=== PATIENT | female | born 1985 | race Caucasian/White ===

== ENCOUNTER 2016-11-15 15:32 | Observation (INO) | payer OTHER ==
[2016-11-15 15:32] VITALS: BMI 27.3
[2016-11-15 15:37] VITALS: RESP 16; O2SAT 100
[2016-11-15] MEDS ORDERED: Iohexol 240 (50 ml) PO ONE (15:56)
[2016-11-15] MEDS ORDERED: Sodium Chloride 0.9% 1,000 ML IV STA (15:56)
--- NOTE | 2016-11-15 16:10 | ED PDOC ---
HPI: Abdomen Time Seen by Provider: 11/15/16 15:38 Chief Complaint (Nursing): Female Genitourinary Chief Complaint (Provider): Right flank pain History Per: Patient History/Exam Limitations: no limitations Onset/Duration Of Symptoms: Hrs Outside of [place] travel?: No Quality Of Discomfort: Sharp Associated Symptoms: Nausea. denies: Vomiting, Diarrhea, Chest Pain, Urinary Symptoms Additional History Per: Patient Additional Complaint(s): The patient is a 30yo female, no known PMHx, presents to the ED for evaluation of right sided flank pain onset since 11am today. Patient reports the pain is atraumatic and nonradiating. Patient reports associated nausea. She states having similar symptoms in the past and reports her pain relieved spontaneously. Patient denies any urinary symptoms, vomiting, diarrhea, chest pain, dizziness. Patient offers no additional medical complaints. No dysuria. No weakness, chest pain, dyspnea. Abnormal Vaginal Bleeding: No Past Medical History Reviewed: Historical Data, Nursing Documentation, Vital Signs Vital Signs: Last Vital Signs Temp 98.7 F 11/15/16 15:35 Pulse 74 11/15/16 15:35 Resp 16 11/15/16 15:35 BP 95/64 L 11/15/16 15:35 Pulse Ox 100 11/15/16 16:14 - Medical History PMH: No Chronic Diseases - Surgical History Surgical History: No Surg Hx - Family History Family History: States: Unknown Family Hx - Social History Current smoker - smoking cessation education provided: No Alcohol: None Drugs: Denies - Immunization History Hx Tetanus Toxoid Vaccination: No Hx Influenza Vaccination: No Hx Pneumococcal Vaccination: No - Home Medications Home Medications: Ambulatory Orders Medication Instructions Recorded Acetaminophen/Butalbital/Caf 1 tab PO TID PRN #20 tab 06/17/16 [Fioricet] Acetaminophen/Diphenhydramine 1 each PO PRN PRN 06/17/16 [Tylenol Pm Ex-Strength Caplet] Metoclopramide [Reglan] 1 tab PO TID PRN #25 tab 06/17/16 - Allergies Allergies/Adverse Reactions: Allergies Allergy/AdvReac Type Severity Reaction Status Date / Time No Known Allergies Allergy Verified 11/15/16 15:34 Review of Systems ROS Statement: Except As Marked, All Systems Reviewed And Found Negative Cardiovascular: Negative for: Chest Pain Gastrointestinal: Positive for: Nausea, Abdominal Pain (right flank pain). Negative for: Vomiting, Diarrhea Genitourinary Female: Negative for: Dysuria, Frequency, Incontinence, Hematuria Neurological: Negative for: Headache, Dizziness Physical Exam - Reviewed Nursing Documentation Reviewed: Yes Vital Signs Reviewed: Yes - Physical Exam Appears: Positive for: Well, Non-toxic, No Acute Distress Head Exam: Positive for: ATRAUMATIC, NORMAL INSPECTION, NORMOCEPHALIC Skin: Positive for: Normal Color, Warm, Dry Eye Exam: Positive for: Normal appearance Neck: Positive for: Normal, Supple Cardiovascular/Chest: Positive for: Regular Rate, Rhythm Respiratory: Positive for: Normal Breath Sounds. Negative for: Respiratory Distress Gastrointestinal/Abdominal: Positive for: Soft, Tenderness (Right lower quadrant tenderness to palpation) Back: Positive for: R CVA Tenderness Extremity: Positive for: Normal ROM. Negative for: Pedal Edema, Deformity, Swelling Neurologic/Psych: Positive for: Alert, Oriented - Laboratory Results Result Diagrams: 11/15/16 16:38 11/15/16 16:38 Interpretation Of Abn Labs: bacteria in urine - ECG O2 Sat by Pulse Oximetry: 100 (RA) Pulse Ox Interpretation: Normal - CT Scan/US ct Other Rad Studies (CT/US): Read By Radiologist Other Rad Interpretation: no acute Medical Decision Making Medical Decision Making: Time: 1545 Impression: Right flank pain with right lower quadrant pain tenderness Plan: -- CT AP w/ contrast -- Labs -- IV Fluids -- Toradol 15 mg IV Reassess Scribe Attestation: Documented by Kenia Atwood acting as a scribe for Marquis Li MD. Provider Attestation: All medical record entries made by the Scribe were at my direction and personally dictated by me. I have reviewed the chart and agree that the record accurately reflects my personal performance of the history, physical exam, medical decision making, and the department course for this patient. I have also personally directed, reviewed, and agree with the discharge instructions and disposition. ED OBSERVATION Discharge: Yes Date of observation admission: 11/15/16 Time of observation admission: 16:17 - Observation admission statement Patient is being placed in observation because:: pending ct ap and pain eval - Goals of Observation Goals of observation are:: 2119: Stable. AAOx3. Pain free. Tolerated PO. Fu with pcp. - Progress Note Progress Note: 11/15/16 21:21 pain free Disposition - Clinical Impression Clinical Impression: Urinary tract infection, Abdominal pain - Patient ED Disposition Is Patient to be Admitted: No Counseled Patient/Family Regarding: Studies Performed, Diagnosis, Need For Followup, Rx Given - Disposition Disposition: Routine/Home Disposition Time: 21:21 Condition: FAIR
[2016-11-15] MEDS ORDERED: Iohexol 240 (50 ml) ONE (16:16)
[2016-11-15 16:55] LABS: ALB/GLOB RATIO 1.4 (1.0-2.1); ALBUMIN 4.2 g/dL (3.5-5.0); ALT/SGPT 34 U/L (9-52); AST/SGOT 22 U/L (14-36); BLOOD UREA NITROGEN 10 mg/dl (7-17); CALCIUM 8.9 mg/dL (8.4-10.2); GFR AFRICAN-AMERICAN > 60; GFR NON-AFRICAN AMERICAN > 60
[2016-11-15 16:58] LABS: SQUAMOUS EPITHIAL 1 /hpf (0-5); URINE BACTERIA OCC (<OCC); URINE BILIRUBIN NEGATIVE (NEGATIVE); URINE BLOOD SMALL (NEGATIVE); URINE CLARITY SLIGHTY-CLOUDY (Clear); URINE COLOR YELLOW (YELLOW); URINE GLUCOSE (UA) NEG (Normal); URINE LEUKOCYTE ESTERASE MOD Leu/uL (Negative); URINE NITRATE NEGATIVE (NEGATIVE); URINE PROTEIN NEGATIVE (NEGATIVE); URINE UROBILINOGEN 0.2-1.0 mg/dL (0.2-1.0)
[2016-11-15 17:01] LABS: BASO % 0.2 % (0.0-2.0); EOS # 0.1 K/uL (0.0-0.7); EOS % 0.7 % (0.0-4.0); LYMPH # 2.5 K/uL (1.0-4.3); LYMPH % 35.6 % (20.0-40.0); MEAN CELL VOLUME 86.9 fl (81.0-99.0); MEAN CORPUSCULAR HEMOGLOBIN 28.5 pg (27.0-31.0); MEAN CORPUSCULAR HGB CONC 32.8 g/dL (33.0-37.0); MEAN PLATELET VOLUME 10.3 fl (7.2-11.7); MONO # 0.5 K/uL (0.0-0.8); MONO % 7.2 % (0.0-10.0); NEUT # 3.9 K/uL (1.8-7.0); NEUT % 56.3 % (50.0-75.0); RBC 4.21 Mil/uL (3.80-5.20); RED CELL DISTRIBUTION WIDTH 14.1 % (11.5-14.5)
[2016-11-15] MEDS ORDERED: Iohexol 300 100 ML IJ ONE (18:41)
[2016-11-15] MEDS ORDERED: Sodium Chloride 0.9% 50 ML IV ONE (18:41)
--- NOTE | 2016-11-15 20:35 | CT ---
EXAM: CT Abdomen and Pelvis With Intravenous Contrast CLINICAL HISTORY: 30 years old, female; Pain; Abdominal pain; Localized; Right; Patient HX: Ruq rlq pain radiating to rt flank; Additional info: Abd pain TECHNIQUE: Axial computed tomography images of the abdomen and pelvis with intravenous contrast. This CT exam was performed using one or more of the following dose reduction techniques: automated exposure control, adjustment of the mA and/or kV according to patient size, and/or use of iterative reconstruction technique. Coronal and sagittal reformatted images were created and reviewed. CONTRAST: 98 mL of OMNIPAQUE administered intravenously. EXAM DATE/TIME: 11/15/2016 3:56 PM COMPARISON: US - ABDOMEN COMPLETE 05/19/2014 7:03:02 PM FINDINGS: Lower thorax: Heart size is normal. There is minimal atelectasis at the lung bases. There is a small hiatal hernia ABDOMEN: Liver: unremarkable Gallbladder and bile ducts: unremarkable Pancreas: unremarkable Spleen: unremarkable Adrenals: unremarkable Kidneys and ureters: unremarkable Stomach and bowel: Stomach is partially distended. Rotation is normal. There is no obstruction. Terminal ileum is unremarkable. Appendix is only partially visualized and contains contrast and air.Colon is incompletely distended which limits evaluation. Appendix: See above. PELVIS: Bladder: unremarkable Reproductive: Uterus and right adnexa are unremarkable. There is a corpus luteum in the left adnexa. ABDOMEN and PELVIS: Intraperitoneal space: There is free fluid in the pelvis. There is no free air. Bones/joints: There are no acute osseous abnormalities there is mild L5-S1 disc bulging. Soft tissues: There is a very small fat containing umbilical hernia. Vasculature: Vascular structures are unremarkable. Lymph nodes: There is no pathologic adenopathy. IMPRESSION: No acute solid visceral or bowel abnormality, no CT findings of acute appendicitis; free fluid in the pelvis, physiologic versus recent cyst rupture; left corpus luteum
[2016-11-15 21:41] VITALS: BP 97/61; PULSE 64; TEMP 98.2
== END 2016-11-15 21:22 | disposition home or self-care (01) ==
LOC: H.ER 15:32 → H.EROBSV 15:56
PROVIDERS: ADMIT Emergency Medicine; ATTEND Emergency Medicine
DX: N39.0 Urinary tract infection, site not specified (principal)

== ENCOUNTER 2017-03-30 12:28 | Emergency (ER) | payer OTHER ==
[2017-03-30 13:17] VITALS: BMI 30.7
[2017-03-30 13:19] VITALS: BP 96/60; PULSE 60; RESP 16; TEMP 98; O2SAT 100
--- NOTE | 2017-03-30 14:17 | ED PDOC ---
HPI: Back Time Seen by Provider: 03/30/17 13:50 Chief Complaint (Nursing): Back Pain Chief Complaint (Provider): Back Pain History Per: Patient History/Exam Limitations: no limitations Onset/Duration Of Symptoms: Days (x2) Current Symptoms Are (Timing): Still Present Additional Complaint(s): Delta Sims is a 31 year old female with a past medical history of chronic back pain who presents to the ED complaining of lower back pain x2 days. Confirms pain and difficulty with movement. States she stands a lot at work and she took Tylenol today without relief. Also states she developed chronic back pain since . PMD: Stacey Bender MD Past Medical History Reviewed: Historical Data, Nursing Documentation, Vital Signs Vital Signs: Last Vital Signs Temp 98 F 03/30/17 13:17 Pulse 60 03/30/17 13:17 Resp 16 03/30/17 13:17 BP 96/60 L 03/30/17 13:17 Pulse Ox 100 03/30/17 13:17 - Medical History PMH: Back Problems (since ) - Family History Family History: States: Unknown Family Hx - Immunization History Hx Tetanus Toxoid Vaccination: No Hx Influenza Vaccination: No Hx Pneumococcal Vaccination: No - Home Medications Home Medications: Ambulatory Orders Medication Instructions Recorded Acetaminophen/Butalbital/Caf 1 tab PO TID PRN #20 tab 06/17/16 [Fioricet] Acetaminophen/Diphenhydramine 1 each PO PRN PRN 06/17/16 [Tylenol Pm Ex-Strength Caplet] Metoclopramide [Reglan] 1 tab PO TID PRN #25 tab 06/17/16 Ciprofloxacin HCl [Cipro] 250 mg PO BID #6 tab 11/15/16 Ibuprofen [Motrin] 600 mg PO TID 7 Days tab 11/15/16 Naproxen 1 tab PO Q12 PRN #14 tab 03/30/17 diaZEpam [Valium] 5 mg PO Q6 PRN #4 tab 03/30/17 - Allergies Allergies/Adverse Reactions: Allergies Allergy/AdvReac Type Severity Reaction Status Date / Time No Known Allergies Allergy Verified 03/30/17 13:18 Review of Systems ROS Statement: Except As Marked, All Systems Reviewed And Found Negative Musculoskeletal: Positive for: Back Pain Physical Exam - Reviewed Nursing Documentation Reviewed: Yes Vital Signs Reviewed: Yes - Physical Exam Appears: Positive for: Well, Non-toxic, No Acute Distress Head Exam: Positive for: ATRAUMATIC, NORMAL INSPECTION, NORMOCEPHALIC Skin: Positive for: Normal Color. Negative for: Rash Eye Exam: Positive for: Normal appearance Gastrointestinal/Abdominal: Positive for: Normal Exam, Bowel Sounds, Soft. Negative for: Tenderness, Guarding, Rebound Back: Negative for: Normal Inspection (Paralumbar tenderness) Neurologic/Psych: Positive for: Alert, Oriented - ECG O2 Sat by Pulse Oximetry: 100 (RA) Pulse Ox Interpretation: Normal Medical Decision Making Medical Decision Making: Time: 13:29 Clinical Impression: Muscular strain Plan: --ED urine --Toradol 30 mg IM --Reevaluation Scribe Attestation: Documented by Vern Kang, acting as a scribe for Sharath Cam PA-C Provider Scribe Attestation: All medical record entries made by the Scribe were at my direction and personally dictated by me. I have reviewed the chart and agree that the record accurately reflects my personal performance of the history, physical exam, medical decision making, and the department course for this patient. I have also personally directed, reviewed, and agree with the discharge instructions and disposition. Disposition - Clinical Impression Clinical Impression: Back strain - Patient ED Disposition Is Patient to be Admitted: No - Disposition Referrals: [facility] [Outside] Disposition: Routine/Home Disposition Time: 14:12 Condition: STABLE Prescriptions: diaZEpam [Valium] 5 mg PO Q6 PRN #4 tab PRN Reason: Muscle Spasm Naproxen 1 tab PO Q12 PRN #14 tab PRN Reason: Pain, Moderate (4-7) Instructions: Muscle Strain (ED) Forms: [facility] ED School/Work Excuse
== END 2017-03-30 14:13 | disposition home or self-care (01) ==
LOC: H.ER 12:28
DX: S39.012A Strain of muscle, fascia and tendon of lower back, initial encounter (principal); G89.29 Other chronic pain
CPT/HCPCS: 81025; 96372; 99282; J1885

== ENCOUNTER 2018-01-14 10:46 | Emergency (ER) | payer OTHER ==
[2018-01-14 11:07] VITALS: BMI 29.0
[2018-01-14 11:08] VITALS: O2SAT 100
--- NOTE | 2018-01-14 11:33 | ED PDOC ---
HPI: Abdomen History Per: Patient History/Exam Limitations: no limitations Onset/Duration Of Symptoms: Hrs Current Symptoms Are (Timing): Still Present Severity: Severe Pain Scale Rating Of: 8 Location Of Pain/Discomfort: RUQ, RLQ Quality Of Discomfort: Cramping Associated Symptoms: Nausea. denies: Fever, Chills, Vomiting, Diarrhea Exacerbating Factors: Movement Alleviating Factors: None Last Bowel Movement: Days Ago (2, normal per pt) <Bonny French - Last Filed: 01/14/18 14:29> <Tavares Cyr III - Last Filed: 01/14/18 17:15> Time Seen by Provider: 01/14/18 11:11 Chief Complaint (Nursing): Abdominal Pain Additional Complaint(s): CC: abdominal pain HPI: 32 YO Female with no sig PMHx presents to [facility] ED for abdominal pain. Pain is located in the RUQ/RLQ and radiates to the pelvis, pain started suddenly this morning about 3 hrs ago. Pain is described as cramping, but intense cramping. Associated with nausea, and pain worse with ambulation. Similar pain in the past associated with her periods, but this pain is a lot more intense per pt. Endorsing Dysuria, no frequency. Denies chest pain, dyspnea, v/d/c, fevers and chills. Last BM was 2 days ago, and normal per pt. PMD: [place] PMHx: denies SurgHx: denies SHx: denies ETOH, smoking and illicit drug use FHx: hx of HTN and DM in family Allergies: NKDA Meds: none (Bonny French) Supervising Attending Note <Bonny French - Last Filed: 01/14/18 14:29> - Attestation: I have personally seen and examined this patient.: Yes I have fully participated in the care of the patient.: Yes I have reviewed all pertinent clinical information: Yes <Tavares Cyr III - Last Filed: 01/14/18 17:15> - Notes: Notes:: pt seen and examined. CT report discussed. Abdomen benign on re-eval. Discussed importance of followup w GI for further testing. BP borderline on re-eval but states her BP normally runs low. HR is 60. No orthostasis. Ambulating without difficulty. (Tavares Cyr III) Past Medical History - Medical History PMH: Back Problems (since ) - Surgical History Surgical History: No Surg Hx - Family History Family History: States: Diabetes, Hypertension - Social History Current smoker - smoking cessation education provided: No Alcohol: None Drugs: Denies - Immunization History Hx Tetanus Toxoid Vaccination: No Hx Influenza Vaccination: No Hx Pneumococcal Vaccination: No <Bonny French - Last Filed: 01/14/18 14:29> <Tavares Cyr III - Last Filed: 01/14/18 17:15> Vital Signs: Last Vital Signs Temp 98.2 F 01/14/18 14:39 Pulse 60 01/14/18 14:39 Resp 16 01/14/18 14:39 BP 92/52 L 01/14/18 14:39 Pulse Ox 100 01/14/18 14:39 - Home Medications Home Medications: Ambulatory Orders Medication Instructions Recorded Acetaminophen/Butalbital/Caf 1 tab PO TID PRN #20 tab 06/17/16 [Fioricet] Acetaminophen/Diphenhydramine 1 each PO PRN PRN 06/17/16 [Tylenol Pm Ex-Strength Caplet] Metoclopramide [Reglan] 1 tab PO TID PRN #25 tab 06/17/16 Ciprofloxacin HCl [Cipro] 250 mg PO BID #6 tab 11/15/16 Ibuprofen [Motrin] 600 mg PO TID 7 Days tab 11/15/16 Naproxen 1 tab PO Q12 PRN #14 tab 03/30/17 diaZEpam [Valium] 5 mg PO Q6 PRN #4 tab 03/30/17 Cephalexin [cephalexin] 500 mg PO TID #15 cap 01/14/18 Ondansetron ODT [Zofran ODT] 4 mg PO Q6 PRN #10 odt 01/14/18 Ranitidine HCl [Zantac] 150 mg PO BID #20 tablet 01/14/18 - Allergies Allergies/Adverse Reactions: Allergies Allergy/AdvReac Type Severity Reaction Status Date / Time No Known Allergies Allergy Verified 03/30/17 13:18 Review of Systems Constitutional: Negative for: Fever, Chills Cardiovascular: Negative for: Chest Pain, Palpitations Respiratory: Negative for: Cough, Shortness of Breath Gastrointestinal: Positive for: Nausea, Abdominal Pain. Negative for: Vomiting , Diarrhea, Constipation Genitourinary Female: Positive for: Dysuria. Negative for: Frequency, Hematuria <Bonny French - Last Filed: 01/14/18 14:29> Physical Exam - Physical Exam Appears: Positive for: No Acute Distress Skin: Positive for: Normal Color Cardiovascular/Chest: Positive for: Regular Rate, Rhythm. Negative for: Murmur Respiratory: Positive for: Normal Breath Sounds. Negative for: Crackles, Wheezing Gastrointestinal/Abdominal: Positive for: Bowel Sounds, Soft, Tenderness (to palpation of the RUQ, and RLQ as well as the pelvis ), Distended (obese ), Other (neg Kelly's sign ). Negative for: Mass, Guarding, Rebound Back: Positive for: Normal Inspection. Negative for: L CVA Tenderness, R CVA Tenderness Extremity: Positive for: Normal ROM. Negative for: Tenderness, Pedal Edema Neurologic/Psych: Positive for: Alert, Oriented <Bonny French - Last Filed: 01/14/18 14:29> - Laboratory Results Result Diagrams: 01/14/18 11:40 01/14/18 11:40 - ECG O2 Sat by Pulse Oximetry: 100 <Sa Gillianima - Last Filed: 01/14/18 14:29> - Laboratory Results Result Diagrams: 01/14/18 11:40 01/14/18 11:40 <Tavares Cyr III - Last Filed: 01/14/18 17:15> - Progress ED Course And Treament: 32 YO Female with Abd pain. -cbc, cmp, lipase -Toradol, IVF, Zofran -CT abd and pelvis -UA 12:45: pt seen and reevaluated States that her nausea has improved, and mild improvement with the pain Blood work reviewed with patient, wnl UA sig for trace leukes Pending CT abd and Pelvis CT abd and pelvis IMPRESSION: No acute abdominal or pelvic abnormality. Specifically, no CT evidence for acute appendicitis. Mild hepatosplenomegaly and fatty liver. 14:15--pt seen examined States that her abdominal pain and nausea has resolved at this time. CT abd and pelvis reviewed with patient, neg for any acute findings. Will d/c pt home with Keflex for UTI x 7 days and Zofran for nausea as needed Pt to follow up with PMD in 1 week, [place] and with GI if symptoms persists Pt agrees with plan (Bonny French) Disposition - Disposition Disposition: Routine/Home Disposition Time: 14:31 <Bonny French - Last Filed: 01/14/18 14:29> Counseled Patient/Family Regarding: Studies Performed, Diagnosis, Need For Followup, Rx Given <Tavares Cyr III - Last Filed: 01/14/18 17:15> - Clinical Impression Clinical Impression: Abdominal pain - Disposition Condition: STABLE Additional Instructions: See GI doctor if symptoms persist, return to ER for any worse pain, fever, weakness, vomiting blood or blood in stool. Prescriptions: Cephalexin [cephalexin] 500 mg PO TID #15 cap Ondansetron ODT [Zofran ODT] 4 mg PO Q6 PRN #10 odt PRN Reason: Nausea/Vomiting Ranitidine HCl [Zantac] 150 mg PO BID #20 tablet Instructions: Urinary Tract Infections in Adults, Acute Abdomen (Belly Pain), Adult (DC), Nausea and Vomiting, Adult (DC) Forms: [employer] (Malaysian)
[2018-01-14] MEDS ORDERED: Sodium Chloride 0.9% 1,000 ML IV STA ×2 (11:34→11:35)
[2018-01-14 11:50] LABS: BASO % 0.8 % (0.0-2.0); EOS % 0.5 % (0.0-4.0); HEMOGLOBIN 12.5 g/dL (12.0-16.0); LYMPH # 2.1 K/uL (1.0-4.3); LYMPH % 35.8 % (20.0-40.0); MEAN CELL VOLUME 85.9 fl (81.0-99.0); MEAN CORPUSCULAR HEMOGLOBIN 28.8 pg (27.0-31.0); MEAN CORPUSCULAR HGB CONC 33.6 g/dL (33.0-37.0); MEAN PLATELET VOLUME 10.3 fl (7.2-11.7); MONO # 0.4 K/uL (0.0-0.8); MONO % 6.7 % (0.0-10.0); NEUT # 3.4 K/uL (1.8-7.0); NEUT % 56.2 % (50.0-75.0); NRBC % 0.3 % (0.0-0.0); RBC 4.33 Mil/uL (3.80-5.20)
[2018-01-14 11:51] LABS: SQUAMOUS EPITHIAL 2 /hpf (0-5); URINE BACTERIA RARE (<OCC); URINE BILIRUBIN NEGATIVE (NEGATIVE); URINE BLOOD NEGATIVE (NEGATIVE); URINE CLARITY SLIGHTY-CLOUDY (Clear); URINE COLOR YELLOW (YELLOW); URINE GLUCOSE (UA) NEG (Normal); URINE LEUKOCYTE ESTERASE TRACE Leu/uL (Negative); URINE PROTEIN NEGATIVE (NEGATIVE); URINE UROBILINOGEN 0.2-1.0 mg/dL (0.2-1.0)
[2018-01-14 12:01] LABS: ALB/GLOB RATIO 1.6 (1.0-2.1); ALBUMIN 4.3 g/dL (3.5-5.0); ALT/SGPT 20 U/L (9-52); AST/SGOT 20 U/L (14-36); BLOOD UREA NITROGEN 9 mg/dl (7-17); CALCIUM 9.3 mg/dL (8.4-10.2); GFR NON-AFRICAN AMERICAN > 60; LIPASE 49 U/L (23-300)
[2018-01-14] MEDS ORDERED: Iohexol 300 100 ML IJ ONE (12:35)
[2018-01-14] MEDS ORDERED: Sodium Chloride 0.9% 50 ML IV ONE (12:36)
--- NOTE | 2018-01-14 14:05 | CT ---
Date of service: 01/14/2018 PROCEDURE: CT Abdomen and Pelvis with contrast HISTORY: R sided abdominal pain COMPARISON: 11/15/2016. TECHNIQUE: CT scan of the abdomen and pelvis was performed after administration of intravenous contrast. Oral contrast was not administered. Coronal and sagittal reformatted images were obtained. Contrast dose: 95 cc Omnipaque 300 Radiation dose: Total exam DLP = 705.54 mGy-cm. This CT exam was performed using one or more of the following dose reduction techniques: Automated exposure control, adjustment of the mA and/or kV according to patient size, and/or use of iterative reconstruction technique. FINDINGS: LOWER THORAX: The lung bases are clear. LIVER: Mild hepatomegaly and fatty liver. No gross lesion or ductal dilatation. GALLBLADDER AND BILE DUCTS: No calcified gallstones. PANCREAS: Normal in size with homogeneous enhancement. No gross lesion or ductal dilatation. SPLEEN: Borderline splenomegaly with homogeneous enhancement. ADRENALS: No discrete nodule. KIDNEYS AND URETERS: Normal in size with homogeneous enhancement. No hydronephrosis. No solid mass. VASCULATURE: No aortic aneurysm. BOWEL: The small bowel loops are normal in caliber. The colon is unremarkable. No bowel dilatation or obstruction. There is moderate amount of stool in the colon. APPENDIX: Normal appendix. PERITONEUM: No free fluid. No free air. LYMPH NODES: No enlarged lymph nodes. BLADDER: Normal in appearance. REPRODUCTIVE: The uterus is normal in size. BONES: No acute fracture. Within normal limits for the patient's age. OTHER FINDINGS: None. IMPRESSION: No acute abdominal or pelvic abnormality. Specifically, no CT evidence for acute appendicitis. Mild hepatosplenomegaly and fatty liver.
[2018-01-14 14:42] VITALS: BP 92/52; PULSE 60; RESP 16; TEMP 98.2
== END 2018-01-14 15:30 | disposition home or self-care (01) ==
LOC: H.ER 10:46
DX: R10.9 Unspecified abdominal pain (principal); N39.0 Urinary tract infection, site not specified
CPT/HCPCS: 74177; 80053; 81003; 81025; 83690; 85025; 96361; 96374; 96375; 99285; J1885; J2405; J7030; Q9967

== ENCOUNTER 2018-02-15 09:29 | Emergency (ER) | payer OTHER ==
[2018-02-15 09:29] VITALS: BMI 29.0
[2018-02-15 09:33] VITALS: RESP 18; O2SAT 98
--- NOTE | 2018-02-15 11:02 | ED PDOC ---
HPI: Skin/Bite Injury Time Seen by Provider: 02/15/18 10:09 Chief Complaint (Provider): rash History Per: Patient History/Exam Limitations: no limitations Onset/Duration Of Symptoms: Days Current Symptoms Are (Timing): Still Present Location Of Injury: Right: Chest, Forearm, Thigh, Left: Forearm, Thigh, Anterior: Abdomen, Forearm, Thigh Quality Of Symptoms: Itching Severity: Mild Additional Complaint(s): 32 y/o F with no PMH who comes in c/o rash that began yesterday. She states that she noticed a lesion on Right arm that she thought was a mosquito bite yesterday but then noted lesions on her breasts and abdomen. Mildly itchy. Denies fever, chills, night sweats, sick contacts, new medications or history. Past Medical History Vital Signs: Last Vital Signs Temp 98.5 F 02/15/18 09:32 Pulse 95 H 02/15/18 09:32 Resp 18 02/15/18 09:32 BP 99/67 L 02/15/18 09:32 Pulse Ox 98 02/15/18 09:32 - Medical History PMH: Back Problems (since ) Denies: Chronic Kidney Disease - Family History Family History: States: Unknown Family Hx, Diabetes, Hypertension - Immunization History Hx Tetanus Toxoid Vaccination: No Hx Influenza Vaccination: No Hx Pneumococcal Vaccination: No - Home Medications Home Medications: Ambulatory Orders Medication Instructions Recorded Acetaminophen/Butalbital/Caf 1 tab PO TID PRN #20 tab 06/17/16 [Fioricet] Acetaminophen/Diphenhydramine 1 each PO PRN PRN 06/17/16 [Tylenol Pm Ex-Strength Caplet] Metoclopramide [Reglan] 1 tab PO TID PRN #25 tab 06/17/16 Ciprofloxacin HCl [Cipro] 250 mg PO BID #6 tab 11/15/16 Ibuprofen [Motrin] 600 mg PO TID 7 Days tab 11/15/16 RX: Naproxen 1 tab PO Q12 PRN #14 tab 03/30/17 diaZEpam [Valium] 5 mg PO Q6 PRN #4 tab 03/30/17 Cephalexin [cephalexin] 500 mg PO TID #15 cap 01/14/18 Ondansetron ODT [Zofran ODT] 4 mg PO Q6 PRN #10 odt 01/14/18 Ranitidine HCl [Zantac] 150 mg PO BID #20 tablet 01/14/18 RX: Clotrimazole 1% Cream 1 applic TOP BID 7 Days #1 tube 02/15/18 [Lotrimin 1% CREAM] - Allergies Allergies/Adverse Reactions: Allergies Allergy/AdvReac Type Severity Reaction Status Date / Time No Known Allergies Allergy Verified 02/15/18 09:49 Review of Systems ROS Statement: Except As Marked, All Systems Reviewed And Found Negative Skin: Positive for: Rash, Lesions (mildly itchy rash on torso and b/L upper and lower extremities) - ECG O2 Sat by Pulse Oximetry: 98 Disposition - Clinical Impression Clinical Impression: Rash - Patient ED Disposition Is Patient to be Admitted: No - Disposition Referrals: Emerson Acosta MD [Staff Provider] - Disposition: Routine/Home Disposition Time: 11:18 Condition: STABLE Prescriptions: RX: Clotrimazole 1% Cream [Lotrimin 1% CREAM] 1 applic TOP BID 7 Days #1 tube Instructions: Skin Rash (DC) Print Language: UPPER [place]ORBI[place]
[2018-02-15 11:20] VITALS: BP 120/70; PULSE 74; TEMP 98
== END 2018-02-15 11:21 | disposition home or self-care (01) ==
LOC: H.ER 09:29
DX: R21 Rash and other nonspecific skin eruption (principal)